=== PATIENT | female | born 1980 | race Caucasian/White ===

== ENCOUNTER 2019-10-26 14:26 | Emergency (ER) | payer BC, SELFPAY ==
--- NOTE | 2019-10-26 14:39 | XRR_ITS ---
PROCEDURE INFORMATION: Exam: XR Chest, 1 View Exam date and time: 10/26/2019 4:55 PM Age: 39 years old Clinical indication: Chest pain TECHNIQUE: Imaging protocol: XR of the chest Views: 1 view. COMPARISON: CR Chest 1 [place] [id number] 01/31/2017 10:19 AM FINDINGS: Lungs: Unremarkable. No consolidation. Pleural space: Unremarkable. No pleural effusion. No pneumothorax. Heart/Mediastinum: Unremarkable. No cardiomegaly. Bones/joints: Unremarkable. XR/XR chest 1V portable [id number] IMPRESSION: No acute findings.
[2019-10-26 14:46] VITALS: BP 160/103; PULSE 77; RESP 20; TEMP 36.6; O2SAT 98; BMI 57.4
[2019-10-26 16:20] LABS: Basophils % 0.5 %; Eosinophils # 0.3 10^3/uL (0.0-0.8); Eosinophils % 3.2 %; Hematocrit 35.6 % (37.0-47.0); Hemoglobin 10.8 g/dL (11.5-15.3); Lymphocytes # 2.1 10^3/uL (0.8-4.8); Lymphocytes % 27.1 %; Mean Corpuscular HGB Conc 30.3 g/dL (30.0-36.0); Mean Corpuscular Hemoglobin 23.3 pg (28.0-34.0); Mean Corpuscular Volume 76.9 fL (81-99); Mean Platelet Volume 9.8 fL (7.4-10.4); Monocytes # 0.4 10^3/uL (0.2-0.9); Monocytes % 5.5 %; Neutrophils # 4.9 10^3/uL (1.8-7.7); Neutrophils % 63.3 %; Nucleated Red Blood Cells % 0 %; Platelet Count 305 10^3/cmm (130-400); Red Blood Count 4.63 10^6/uL (4.1-5.3); White Blood Count 7.8 10^3/uL (4.0-10.0)
[2019-10-26 16:37] LABS: Troponin(5th) Baseline 7 ng/mL (0-10)
--- NOTE | 2019-10-26 16:39 | ECG_ITS ---
Measurements Intervals [place] Rate: 67 P: 36 TN: 157 QRS: 7 QRSD: 95 T: 10 QT: 402 QTc: 426 SINUS RHYTHM MODERATE VOLTAGE CRITERIA FOR LVH, CONSIDER NORMAL VARIANT [MEETS CRITERIA IN ONE OF: R(aVL), S(V1), R(V5), R(V5/V6)+S(V1)] Compared to ECG 01/31/2017 13:42:45 No significant changes Electronically Signed On 10-26-2019 18:24:01 CDT by Gloria Narvaez M.D. [id number]
--- NOTE | 2019-10-26 16:54 | ED_ITS ---
HPI - General Adult General: Chief complaint: General Medical Stated complaint: SOB; NEAR SYNCOPE; BILATERAL ARM BURNING Time Seen by Provider: 10/26/19 16:13 History of Present Illness: HPI narrative: Patient is a 39-year-old female who presents today with complaints of chest pain, brief possible syncope, arm and leg burning and shortness of breath. She reports that this started while she was sitting in her car eating lunch that she got at [employer]. She says that she felt some pressure and heaviness in her chest and felt like it was hard to breathe. She felt her head fall back and thinks that she lost consciousness briefly. She felt hot and turned up the air conditioning in her car. She finished eating and went back to work. At work she noted that when she was up moving around she got a burning pain in her arms and legs similar to what you might get from exercising too hard. She said at her desk and the burning in her legs went away but as long as she continued to use her arms the burning continued. She also had some blurriness and lightheadedness. She called her and he called their doctor, Dr. Ram who recommended that she come to the ER. She notes that 1 time in the past she was seen here and diagnosed with a panic attack. She said this feels different. That time she had a very severe chest pain. Symptoms today have been going on for several hours without relief. She does notice that she feels better when she is resting and worse when she is moving around. She has noticed excessive thirst and has been craving ice recently. No other unusual symptoms. Onset (ago): hour(s) (4) Location: chest, upper extremity and lower extremity Radiation: non-radiation Severity: severe Quality: burning Associated symptoms: Deny chest pain, dyspnea, headache(s), malaise, nausea, rash or vomiting Review of Systems General: Reports: 10 or more systems reviewed and unremarkable except in HPI and below Const: Denies: fever(s), chills, fatigue or malaise Eyes: Denies: change in vision ENMT: Denies: odynophagia Card: Denies: chest pain or swelling of feet/ankles Resp: Denies: dyspnea, productive cough or non-productive cough GI: Denies: abdominal pain, nausea or vomiting : Denies: flank pain or difficulty voiding Musc: Denies: neck pain or back pain Skin/Breast: Denies: rash Neuro: Denies: headache(s), numbness in extremities or weakness in extremities Endo: Reports: polydipsia and other (Craving ice) Filipe/Lymph: Denies: easy bruising or easy bleeding PFSH ED PFSH: Social History Smoking and tobacco status: never smoked Female Reproductive History: Date of last menstrual period: 10/02/19 Physical Exam Const: COMMON NORMALS: no acute distress, patient oriented x3, no limitations and alert GENERAL APPEARANCE: cooperative and comfortable NUTRITIONAL APPEARANCE: obese HENMT: HEAD & SCALP: normal to inspection FACE & SINUS: normal facial exam Eye: GENERAL EYE: appearance normal, both eyes and all related structures Neck/C-Spine: COMMON NORMALS: supple, no meningeal signs and no JVD Chest: COMMONS NORMALS: normal inspection of the chest Resp: COMMON NORMALS: normal respiratory effort, No use of accessory muscles and clear to auscultation bilaterally AUSCULTATION: clear to auscultation bilaterally Cardio: COMMON NORMALS: no JVD, regular rate, regular rhythm and No murmurs present (Cardio) RATE: regular rate RHYTHM: regular rhythm GI: COMMON NORMALS: Normal to inspection, nondistended, normoactive bowel sounds present, Soft to palpation and non-tender INSPECTION: Yes normal to inspection AUSCULTATION: Yes normoactive bowel sounds PALPATION: Yes Soft to palpation Back/Pelvis: COMMON NORMALS: thoracic and lumbar spine normal to inspection Extremity: COMMON NORMALS: normal to inspection Neuro: COMMON NORMALS: patient oriented x3, moves all extremities, no focal motor deficits and no sensory deficits noted SENSORIUM/ORIENTATION: Yes alert MENINGEAL SIGNS: Yes no meningeal signs Psych: COMMON NORMALS: mental status grossly normal, cooperative and normal affect Skin: COMMON NORMALS: no rashes or lesions noted and turgor normal GENERAL SKIN EXAM: no rashes or lesions noted and turgor normal Course ED course: Patient continued to be somewhat anxious while in the department. She said she could feel her heart pounding. Work-up was completely negative including CRP, troponins, EKGs, d-dimer. I think this may have been anxiety and we discussed that at some length. However we also discussed that the ED work-up is not enough to rule out all potential causes and she needs to follow-up with her primary care doctor. Vital Signs: Vital signs: Vital Signs Temperature 97.9 F 10/26/19 14:46 Pulse Rate 68 10/26/19 19:50 Respiratory Rate 17 10/26/19 19:50 Blood Pressure 163/77 10/26/19 19:50 Pulse Oximetry 100 10/26/19 19:50 [facility] - General Adult Lab Data: Labs: Lab Results 10/26/19 10/26/19 10/26/19 Range/Units 16:03 16:03 16:03 WBC 7.8 (4.0-10.0) 10^3/ uL RBC 4.63 (4.1-5.3) 10^6/u L Hgb 10.8 L (11.5-15.3) g/dL Hct 35.6 L (37.0-47.0) % MCV 76.9 L (81-99) fL MCH 23.3 L (28.0-34.0) pg MCHC 30.3 (30.0-36.0) g/dL RDW 17.0 H (12.1-15.1) % Plt Count 305 (130-400) 10^3/c mm MPV 9.8 (7.4-10.4) fL Neut % (Auto) 63.3 % Lymph % (Auto) 27.1 % Canadian % (Auto) 5.5 % Eos % (Auto) 3.2 % Baso % (Auto) 0.5 % Neut # (Auto) 4.9 (1.8-7.7) 10^3/u L Lymph # (Auto) 2.1 (0.8-4.8) 10^3/u L Canadian # (Auto) 0.4 (0.2-0.9) 10^3/u L Eos # (Auto) 0.3 (0.0-0.8) 10^3/u L Baso # (Auto) 0.0 (0.0-0.1) 10^3/u L Nucleated RBC % (a uto) 0 % Nucleated RBCs # 0.0 /100WBC ESR (0-15) mm/hr D-Dimer (0-0.59) ug/mIFE U Sodium 137 (136-145) mmol/L Potassium 3.9 (3.5-5.1) mmol/L Chloride 101 (98-107) mmol/L Carbon Dioxide 22 (22-29) mmol/L Anion Gap 17.9 (5-19) BUN 14 (6-20) mg/dL Creatinine 0.7 (0.5-0.9) mg/dL GFR Calculation 92.7 (90-130) mL/min Glucose 106 (65-115) mg/dL Calculated Osmolal ity 281 L (285-295) mOsm/k g Lactate (0.5-2.2) mmol/L Calcium 8.8 (8.5-10.5) mg/dL Total Bilirubin 0.2 (0.15-1.2) mg/dL AST 12 (0-32) U/L ALT 16 (0-33) U/L Alkaline Phosphata se 63 (35-105) IU/L Troponin T Baselin e 7 (0-10) ng/mL C-Reactive Protein (0.0-4.9) mg/L Total Protein 6.8 (6.6-8.7) g/dL Albumin 3.9 (3.5-5.2) g/dL Globulin 2.9 (1.3-4.6) g/dL HCG, Qual (Negative) 10/26/19 10/26/19 10/26/19 Range/Units 16:03 16:03 16:03 WBC (4.0-10.0) 10^3/ uL RBC (4.1-5.3) 10^6/u L Hgb (11.5-15.3) g/dL Hct (37.0-47.0) % MCV (81-99) fL MCH (28.0-34.0) pg MCHC (30.0-36.0) g/dL RDW (12.1-15.1) % Plt Count (130-400) 10^3/c mm MPV (7.4-10.4) fL Neut % (Auto) % Lymph % (Auto) % Canadian % (Auto) % Eos % (Auto) % Baso % (Auto) % Neut # (Auto) (1.8-7.7) 10^3/u L Lymph # (Auto) (0.8-4.8) 10^3/u L Canadian # (Auto) (0.2-0.9) 10^3/u L Eos # (Auto) (0.0-0.8) 10^3/u L Baso # (Auto) (0.0-0.1) 10^3/u L Nucleated RBC % (a uto) % Nucleated RBCs # /100WBC ESR 25 H (0-15) mm/hr D-Dimer 0.44 (0-0.59) ug/mIFE U Sodium (136-145) mmol/L Potassium (3.5-5.1) mmol/L Chloride (98-107) mmol/L Carbon Dioxide (22-29) mmol/L Anion Gap (5-19) BUN (6-20) mg/dL Creatinine (0.5-0.9) mg/dL GFR Calculation (90-130) mL/min Glucose (65-115) mg/dL Calculated Osmolal ity (285-295) mOsm/k g Lactate (0.5-2.2) mmol/L Calcium (8.5-10.5) mg/dL Total Bilirubin (0.15-1.2) mg/dL AST (0-32) U/L ALT (0-33) U/L Alkaline Phosphata se (35-105) IU/L Troponin T Baselin e (0-10) ng/mL C-Reactive Protein 4.5 (0.0-4.9) mg/L Total Protein (6.6-8.7) g/dL Albumin (3.5-5.2) g/dL Globulin (1.3-4.6) g/dL HCG, Qual (Negative) 10/26/19 10/26/19 Range/Units 17:06 17:10 WBC (4.0-10.0) 10^3/ uL RBC (4.1-5.3) 10^6/u L Hgb (11.5-15.3) g/dL Hct (37.0-47.0) % MCV (81-99) fL MCH (28.0-34.0) pg MCHC (30.0-36.0) g/dL RDW (12.1-15.1) % Plt Count (130-400) 10^3/c mm MPV (7.4-10.4) fL Neut % (Auto) % Lymph % (Auto) % Canadian % (Auto) % Eos % (Auto) % Baso % (Auto) % Neut # (Auto) (1.8-7.7) 10^3/u L Lymph # (Auto) (0.8-4.8) 10^3/u L Canadian # (Auto) (0.2-0.9) 10^3/u L Eos # (Auto) (0.0-0.8) 10^3/u L Baso # (Auto) (0.0-0.1) 10^3/u L Nucleated RBC % (a uto) % Nucleated RBCs # /100WBC ESR (0-15) mm/hr D-Dimer (0-0.59) ug/mIFE U Sodium (136-145) mmol/L Potassium (3.5-5.1) mmol/L Chloride (98-107) mmol/L Carbon Dioxide (22-29) mmol/L Anion Gap (5-19) BUN (6-20) mg/dL Creatinine (0.5-0.9) mg/dL GFR Calculation (90-130) mL/min Glucose (65-115) mg/dL Calculated Osmolal ity (285-295) mOsm/k g Lactate 1.3 (0.5-2.2) mmol/L Calcium (8.5-10.5) mg/dL Total Bilirubin (0.15-1.2) mg/dL AST (0-32) U/L ALT (0-33) U/L Alkaline Phosphata se (35-105) IU/L Troponin T Baselin e (0-10) ng/mL C-Reactive Protein (0.0-4.9) mg/L Total Protein (6.6-8.7) g/dL Albumin (3.5-5.2) g/dL Globulin (1.3-4.6) g/dL HCG, Qual Negative (Negative) Discharge Plan Discharge Patient Disposition: Home, Self-Care Clinical Impression: Anxiety Chest pain Qualifiers: Chest pain type: other chest pain Qualified Code(s): R07.89 - Other chest pain Condition: Stable Referrals: Curt Ram DO [Family Provider] - Discharge Diet: Usual diet and Low Salt Discharge Activity: Resume usual activity Patient Instructions: Chest Pain (ED) Activity Restrictions/Additional Instructions: Rest this weekend. Call Dr. Ram on Tuesday to arrange for follow up. Return to the ED if you have any new or worse symptoms. Stand Alone Forms: Work/School Release Discharge Date/Time: 10/26/19 19:53 Coding Level of Care Code ED Glaciologist for Jose Carlos Fwd Exam Comprehensive
[2019-10-26 17:08] LABS: C Reactive Protein 4.5 mg/L (0.0-4.9)
[2019-10-26 17:11] LABS: D Dimer 0.44 ug/mIFEU (0-0.59)
[2019-10-26 17:18] LABS: HCG Qualitative Urine. Negative (Negative)
[2019-10-26 17:26] LABS: Lactate (Lactic Acid level) 1.3 mmol/L (0.5-2.2)
[2019-10-26 17:57] LABS: Erythrocyte Sedimentation Rate 25 mm/hr (0-15)
[2019-10-26 18:13] VITALS: BP 147/78; PULSE 65; RESP 20; O2SAT 99
--- NOTE | 2019-10-26 19:06 | PC.NURSE ---
Report received from JUANA Stevens and care transferred to JUANA Gayle
[2019-10-26 19:30] VITALS: BP 153/67; PULSE 65; RESP 16; O2SAT 99
[2019-10-26 19:31] LABS: Alanine Aminotransferase 16 U/L (0-33); Albumin Level 3.9 g/dL (3.5-5.2); Alkaline Phosphatase 63 IU/L (35-105); Anion Gap 17.9 (5-19); Aspartate Amino Transferase 12 U/L (0-32); Blood Urea Nitrogen 14 mg/dL (6-20); Calcium 8.8 mg/dL (8.5-10.5); Carbon Dioxide 22 mmol/L (22-29); Chloride 101 mmol/L (98-107); Globulin 2.9 g/dL (1.3-4.6); Glomerular Filtration Rate 92.7 mL/min (90-130); Glucose 106 mg/dL (65-115); Osmolality Calculated 281 mOsm/kg (285-295); Potassium 3.9 mmol/L (3.5-5.1); Sodium 137 mmol/L (136-145); Total Bilirubin 0.2 mg/dL (0.15-1.2); Total Protein 6.8 g/dL (6.6-8.7)
[2019-10-26 19:50] VITALS: BP 163/77; PULSE 68; RESP 17; O2SAT 100
--- NOTE | 2019-10-26 20:39 | ECG_ITS ---
Measurements Intervals [place] Rate: 69 P: 32 ND: 162 QRS: 8 QRSD: 91 T: 18 QT: 390 QTc: 420 SINUS RHYTHM MODERATE VOLTAGE CRITERIA FOR LVH, CONSIDER NORMAL VARIANT [MEETS CRITERIA IN ONE OF: R(aVL), S(V1), R(V5), R(V5/V6)+S(V1)] Compared to ECG 01/31/2017 13:42:45 No significant changes Electronically Signed On 10-26-2019 18:26:11 CDT by Gloria Narvaez M.D. [id number]
== END 2019-10-26 19:53 | disposition home or self-care (01) ==
PROVIDERS: Physician Assistant; Emergency Provider Emergency Medicine; Family Provider Electrodiagnostic Medicine
DX: F41.9 Anxiety disorder, unspecified (principal); R07.89 Other chest pain
CPT/HCPCS: 12345; 36415; 71045; 80053; 81025; 83605; 84484; 85025; 85378; 85651; 86140; 93005; 99282; 99283

== ENCOUNTER → 2020-03-10 15:36 | Outpatient (BNVA) | payer BC, SELFPAY | PROVIDERS: Family Provider Electrodiagnostic Medicine; Visit Provider Nurse Practitioner Family | DX: Z11.59 Encounter for screening for other viral diseases (principal) | CPT/HCPCS: 87635 ==

== ENCOUNTER 2020-03-26 16:34 | Emergency (ER) | payer BC, SELFPAY ==
[2020-03-26 16:56] VITALS: BP 156/84; PULSE 97; RESP 18; TEMP 37.6; O2SAT 97; BMI 59.0
--- NOTE | 2020-03-26 18:36 | W.ED.FEVER ---
HPI - Fever General: Chief Complaint: Fever Stated Complaint: headache,body aches,confusion,dizziness Time Seen by Provider: 03/26/20 18:29 History of Present Illness: HPI Narrative: fever, chills , sore throat x few day, migraine for a number of days MD elicited complaint: fever Onset (ago): day(s) Relieving factors: acetaminophen Associated symptoms: Reports chills, confusion and sore throat; Deny abdominal pain, chest pain, extremity pain, nasal congestion, nausea or vomiting Review of Systems Const: Reports: fever(s), chills and body aches Eyes: Denies: change in vision or blurry vision ENMT: Denies: throat pain or nasal congestion Card: Denies: chest pain or dyspnea on exertion Resp: Denies: dyspnea, productive cough or non-productive cough GI: Denies: abdominal pain, nausea or vomiting : Reports: urinary frequency and urinary urgency Musc: Reports: other (myalgia); Denies: extremity pain Skin/Breast: Denies: rash Neuro: Reports: confusion and other (photo/phono phobia) Psych: Denies: anxiety or depression Filipe/Lymph: Denies: easy bruising PFSH ED PFSH: Social History (Updated 03/10/20 @ 14:12 by Ana Guillermo NP) Smoking and tobacco status: never smoked Alcohol intake: never Female Reproductive History: Date of last menstrual period: 10/02/19 Physical Exam Const: COMMON NORMALS: no acute distress, average body habitus and patient oriented x3 HENMT: COMMON NORMALS: normocephalic HEAD & SCALP: normal to inspection and normocephalic FACE & SINUS: normal facial exam Eye: COMMON NORMALS: conjunctivae normal GENERAL EYE: appearance normal, both eyes and all related structures CONJUNCTIVA: Yes conjunctivae normal Neck/C-Spine: COMMON NORMALS: no JVD Chest: COMMONS NORMALS: normal inspection of the chest Resp: COMMON NORMALS: normal respiratory effort and clear to auscultation bilaterally AUSCULTATION: clear to auscultation bilaterally Cardio: COMMON NORMALS: no JVD, regular rate and regular rhythm RATE: regular rate RHYTHM: regular rhythm GI: COMMON NORMALS: Normal to inspection, nondistended, normoactive bowel sounds present Extremity: COMMON NORMALS: normal to inspection and full ROM Neuro: COMMON NORMALS: patient oriented x3 Course Vital Signs: Vital signs: Vital Signs Temperature 99.6 F 03/26/20 16:56 Pulse Rate 97 03/26/20 16:56 Respiratory Rate 18 03/26/20 16:56 Blood Pressure 156/84 03/26/20 16:56 Pulse Oximetry 97 03/26/20 16:56 Discharge Plan Discharge Prescriptions: No Action quinapril 20 mg tablet 20 mg PO DAILY RF: 0 paroxetine mesylate 30 mg tablet 30 mg PO DAILY RF: 0 hydroxyzine HCl 25 mg tablet 25 mg PO QID PRNRF: 0 ferrous sulfate 325 mg (65 mg iron) tablet 325 mg PO DAILY RF: 0 famotidine 20 mg tablet 20 mg PO BID RF: 0 Coding Level of Care Code ED Linux Network Engineer for Jose Carlos Sweeney
--- NOTE | 2020-03-26 18:38 | XR_ITS ---
WS: [id number] Portable AP upright chest, 03/26/2020 Clinical Data: fever Comparison: Portable chest, 10/26/2019. Findings: No nodules, masses or effusions are seen. The heart is normal. The pulmonary vascularity is not increased. No pneumonia or pneumothorax is seen. XR/XR chest 1V portable [id number] Impression: Negative chest.
--- NOTE | 2020-03-26 19:33 | PC.NURSE ---
toradol 30mg zofran 4 mg and benadryl 25 mg a 1 kiter fluids given
[2020-03-26 19:59] LABS: Basophils % 0.3 %; Hematocrit 44.5 % (37.0-47.0); Hemoglobin 13.6 g/dL (11.5-15.3); Lymphocytes # 1.2 10^3/uL (0.8-4.8); Mean Corpuscular HGB Conc 30.6 g/dL (30.0-36.0); Mean Corpuscular Hemoglobin 25.1 pg (28.0-34.0); Mean Corpuscular Volume 82.3 fL (81-99); Mean Platelet Volume 10.8 fL (7.4-10.4); Monocytes # 0.2 10^3/uL (0.2-0.9); Monocytes % 6.3 %; Neutrophils % 54.1 %; Nucleated Red Blood Cells % 0 %; Platelet Count 155 10^3/cmm (130-400); Red Blood Count 5.41 10^6/uL (4.1-5.3); Red Cell Distribution Width 15.3 % (12.1-15.1); White Blood Count 3.2 10^3/uL (4.0-10.0)
[2020-03-26 20:04] LABS: Add Urine Microscopic? NO
[2020-03-26 20:12] LABS: Specific Gravity, Urine 1.025 (1.005-1.030); Urine Appearance Clear (CLEAR); Urine Color Yellow (Yellow)
[2020-03-26 20:13] LABS: Bilirubin Urine Neg (Negative); Blood Urine Neg (Negative); Glucose Urine UA Norm (Normal); Ketones Urine Negative (Negative); Leukocyte Esterase Urine Negative (Negative); Nitrate Urine Negative (Negative); Protein Urine Neg (Negative); Urobilinogen Urine Norm (Negative)
[2020-03-26 20:22] LABS: Rapid Strep A Test Negative (Negative)
[2020-03-26 20:26] LABS: Alanine Aminotransferase 52 U/L (0-33); Albumin Level 4.1 g/dL (3.5-5.2); Alkaline Phosphatase 70 IU/L (35-105); Aspartate Amino Transferase 37 U/L (0-32); Blood Urea Nitrogen 13 mg/dL (6-20); Calcium 9.2 mg/dL (8.5-10.5); Carbon Dioxide 26 mmol/L (22-29); Chloride 98 mmol/L (98-107); Globulin 3.3 g/dL (1.3-4.6); Glomerular Filtration Rate 69.3 mL/min (90-130); Glucose 104 mg/dL (65-115); Osmolality Calculated 280 mOsm/kg (285-295); Sodium 135 mmol/L (136-145); Total Bilirubin 0.2 mg/dL (0.15-1.2); Total Protein 7.4 g/dL (6.6-8.7)
[2020-03-26 20:29] LABS: Anion Gap 14.8 (5-19); Potassium 3.8 mmol/L (3.5-5.1)
[2020-03-26 21:36] VITALS: BP 150/90; O2SAT 99
== END 2020-03-26 21:37 | disposition home or self-care (01) ==
PROVIDERS: Emergency Provider Nurse Practitioner Family
DX: R50.9 Fever, unspecified (principal); R41.0 Disorientation, unspecified; J02.9 Acute pharyngitis, unspecified
CPT/HCPCS: 12345; 71045; 80053; 81003; 85025; 87081; 87400; 87880; 96361; 96374; 96375; 96376; 99283

== ENCOUNTER → 2020-03-27 15:38 | Outpatient (BNVA) | payer BC, SELFPAY | PROVIDERS: Visit Provider Nurse Practitioner Family | DX: Z11.59 Encounter for screening for other viral diseases (principal); Z20.828 Contact with and (suspected) exposure to other viral communicable diseases; B34.9 Viral infection, unspecified | CPT/HCPCS: 87635 ==

== ENCOUNTER → 2021-05-11 11:20 | Outpatient (BNVA) | payer BC, SELFPAY | PROVIDERS: Visit Provider Nurse Practitioner Family | DX: Z20.822 Contact with and (suspected) exposure to COVID-19 (principal) | CPT/HCPCS: 87635 ==

== ENCOUNTER 2021-10-21 11:55 | Emergency (ER) | payer BC, SELFPAY ==
[2021-10-21 12:02] VITALS: BP 203/116; PULSE 100; RESP 19; TEMP 36.8; O2SAT 97; BMI 62.6
--- NOTE | 2021-10-21 12:10 | US_ITS ---
WS: [id number] ULTRASOUND PELVIS TECHNIQUE: Transvaginal. CLINICAL INFORMATION: menometrorrhagia COMPARISON: None. FINDINGS: Technically difficult study due to body habitus Uterus Orientation: Anteverted. Size: 12.0 x 7.2 x 6.3 cm Masses: None. Cervix: Large nabothian cysts in the cervix largest measuring 2.7 x 2.1 x 2.5 cm Endometrium: Thickened measuring 18 mm Adnexa: Neither ovary is visualized. No adnexal masses. Free fluid: None. Other findings: None. US/US transvaginal [id number] IMPRESSION: Technically difficult study due to body habitus. 1. Large nabothian cysts in the cervix largest measuring 2.7 x 2.1 x 2.5 CM. 2. Enlarged uterus with thickened endometrium measuring 18 mm. This could be f urther evaluated with hysteroscopy in the setting of menorrhagia. 3. Neither ovary is visualized. No adnexal masses. 4. No free fluid in the cul-de-sac.
--- NOTE | 2021-10-21 12:21 | W.ED.FEMALGU ---
HPI - Female Genitourinary General: Chief complaint: Vaginal Bleeding Stated complaint: severe vaginal bleeding Time Seen by Provider: 10/21/21 11:59 History of Present Illness: 41-year-old female presents to the emergency department with her mother chief complaint of excessive vaginal bleeding and menstrual cycle since June the patient reports that the earliest she gets to be seen by her ARCHITECTURAL ENGINEER is in November. The patient reports that she has had persistent bleeding since early June with a large amount of clots the patient reports no known history of underlying endometriosis or fibroid disease. She reports she does not believe she is reports she is currently getting worked up for lupus in which she is on chronic steroids. Patient does not report having any other associated symptoms besides generalized malaise and fatigue that brought her and she reports some mild lower abdominal cramping reporting no other associated symptoms reports she is just tired of feeling fatigued. Patient reports she has not attempted to contact her ARCHITECTURAL ENGINEER prior to arrival. Apparently the patient did have some blood work obtained outpatient in the last 2 weeks that came back somewhat unremarkable. Associated symptoms: Deny abdominal pain, headache(s) or nausea Date of Last Menstrual Period: 10/02/19 Review of Systems General: Reports: 10 or more systems reviewed and unremarkable except in HPI and below Const: Denies: fever(s), chills, fatigue or malaise Eyes: Denies: change in vision or blurry vision Card: Denies: chest pain or palpitations Resp: Denies: dyspnea or productive cough GI: Denies: abdominal pain, nausea or vomiting : Reports: irregular period Musc: Denies: extremity pain or extremity swelling Skin/Breast: Denies: rash or pruritus Neuro: Denies: headache(s) Psych: Denies: anxiety or depression Filipe/Lymph: Denies: easy bleeding All/Imm: Denies: urticaria, throat swelling or facial swelling PFSH ED PFSH: Social History Smoking and tobacco status: never smoked Alcohol intake: never Female Reproductive History: Date of last menstrual period: 10/02/19 Physical Exam Const: COMMON NORMALS: no acute distress (Patient has a flat affect on exam however appears in no obvious acute distr), patient oriented x3 and healthy appearing HENMT: COMMON NORMALS: normocephalic and atraumatic HEAD & SCALP: normocephalic and atraumatic Eye: COMMON NORMALS: Equal, round and reactive pupils present and EOMs intact bilaterally PUPIL: Yes Equal, round and reactive pupils present Neck/C-Spine: COMMON NORMALS: full ROM, supple and no JVD Lymph: LYMPHATIC: no lymphadenopathy noted Chest: COMMONS NORMALS: normal inspection of the chest and normal palpation of entire chest wall Resp: COMMON NORMALS: normal respiratory effort, No retractions and clear to auscultation bilaterally EFFORT & INSPECTION: Yes able to speak in complete sentences and Yes symmetric chest movement AUSCULTATION: clear to auscultation bilaterally Cardio: COMMON NORMALS: no JVD, regular rate and regular rhythm RATE: regular rate RHYTHM: regular rhythm GI: COMMON NORMALS: Normal to inspection, nondistended, normoactive bowel sounds present and Soft to palpation; negative for non-tender (Mild pain to palpation diffusely nonspecific in nature) INSPECTION: Yes normal to inspection PALPATION: Yes Soft to palpation : COMMON NORMALS: Yes no CVA tenderness BLADDER/KIDNEY EXAM: Yes no CVA tenderness Back/Pelvis: COMMON NORMALS: no CVA tenderness Extremity: COMMON NORMALS: normal to inspection and full ROM Neuro: COMMON NORMALS: patient oriented x3, CN's II-XII intact bilaterally, moves all extremities and no focal motor deficits Psych: COMMON NORMALS: mental status grossly normal, Normal thought process present, cooperative and normal affect THOUGHT PROCESS: Normal thought process present Skin: COMMON NORMALS: no rashes or lesions noted GENERAL SKIN EXAM: no rashes or lesions noted Course Vital Signs: Vital signs: Vital Signs Temperature 98.2 F 10/21/21 12:02 Pulse Rate 100 10/21/21 12:02 Respiratory Rate 19 H 10/21/21 12:02 Blood Pressure 203/116 10/21/21 12:02 Pulse Oximetry 97 10/21/21 12:02 MDM - Female Medical Decision Making Due to the patient's symptoms and condition lab work and imaging will be obtained ultrasonography will be obtained to further rule out possible fibroids contributing to her menometrorrhagia we will continue to follow currently patient has vital signs suggestive no acute anemia. We will continue to follow. Patient's ultrasound revealed thickened myometrium endometrium with a large nabothian cysts no blood noted in the posterior vault patient was found be mildly anemic however hemoglobin is in the high 10 range which she is not have any symptoms that he does acute blood loss patient was provided with Dr. Whitt further follow-up with referral for ARCHITECTURAL ENGINEER in the next 1 to 3 days which patient was advised to return the interim if any of her symptoms persist or worsen advised the patient she may need to be placed on some hormonal therapy to help augment her mental menorrhagia. Patient was advised to return the interim if any of her symptoms persist or worse. Lab Data : 10/21/21 12:30 10/21/21 12:30 Radiology Impressions Transvaginal US 10/21/21 12:10 IMPRESSION: Technically difficult study due to body habitus. 1. Large nabothian cysts in the cervix largest measuring 2.7 x 2.1 x 2.5 CM. 2. Enlarged uterus with thickened endometrium measuring 18 mm. This could be further evaluated with hysteroscopy in the setting of menorrhagia. 3. Neither ovary is visualized. No adnexal masses. 4. No free fluid in the cul-de-sac. Laboratory Results WBC 18.0 10^3/uL (4.0-10.0) H 10/21/21 12:30 RBC 4.24 10^6/uL (4.1-5.3) 10/21/21 12:30 Hgb 10.2 g/dL (11.5-15.3) L 10/21/21 12:30 Hct 32.9 % (37.0-47.0) L 10/21/21 12:30 MCV 77.6 fl (81-99) L 10/21/21 12:30 MCH 24.1 pg (28.0-34.0) L 10/21/21 12:30 MCHC 31.0 g/dL (30.0-36.0) 10/21/21 12:30 RDW 14.8 % (12.1-15.1) 10/21/21 12:30 Plt Count 447 10^3/cmm (130-400) H 10/21/21 12:30 MPV 9.1 fL (7.4-10.4) 10/21/21 12:30 Neut % (Auto) 73.2 % 10/21/21 12:30 Lymph % (Auto) 20.2 % 10/21/21 12:30 [place] % (Auto) 4.8 % 10/21/21 12:30 Eos % (Auto) 0.6 % 10/21/21 12:30 Baso % (Auto) 0.3 % 10/21/21 12:30 Neut # (Auto) 13.21 10^3/uL (1.8-7.7) H 10/21/21 12:30 Lymph # (Auto) 3.6 10^3/uL (0.8-4.8) 10/21/21 12:30 [place] # (Auto) 0.9 10^3/uL (0.2-0.9) 10/21/21 12:30 Eos # (Auto) 0.1 10^3/uL (0.0-0.8) 10/21/21 12:30 Baso # (Auto) 0.1 10^3/uL (0.0-0.1) 10/21/21 12:30 Nucleated RBC % (auto) 0 % 10/21/21 12:30 Nucleated RBCs # 0.0 /100WBC 10/21/21 12:30 PT 13.40 SECONDS (12.1-14.9) 10/21/21 12:30 INR 0.99 (0.8-1.2) 10/21/21 12:30 APTT 24.1 SECONDS (23.9-36.7) 10/21/21 12:30 Sodium 136 mmol/L (136-145) 10/21/21 12:30 Potassium 3.9 mmol/L (3.5-5.1) 10/21/21 12:30 Chloride 99 mmol/L (98-107) 10/21/21 12:30 Carbon Dioxide 22 mmol/L (22-29) 10/21/21 12:30 Anion Gap 18.9 (5-19) 10/21/21 12:30 BUN 18 mg/dL (6-20) 10/21/21 12:30 Creatinine 0.7 mg/dL (0.5-0.9) 10/21/21 12:30 GFR Calculation 91.8 mL/min (90-130) 10/21/21 12:30 Glucose 145 mg/dL (65-115) H 10/21/21 12:30 Calculated Osmolality 286 mOsm/kg (285-295) 10/21/21 12:30 Calcium 9.1 mg/dL (8.5-10.5) 10/21/21 12:30 Total Bilirubin 0.2 mg/dL (0.15-1.2) 10/21/21 12:30 AST 11 U/L (0-32) 10/21/21 12:30 ALT 14 U/L (0-33) 10/21/21 12:30 Alkaline Phosphatase 75 IU/L (35-105) 10/21/21 12:30 Total Protein 7.5 g/dL (6.6-8.7) 10/21/21 12:30 Albumin 4.1 g/dL (3.5-5.2) 10/21/21 12:30 Globulin 3.4 g/dL (1.3-4.6) 10/21/21 12:30 HCG, Qual Negative (Negative) 10/21/21 14:01 Urine Color Red (Yellow) 10/21/21 12:45 Urine Appearance Hazy (CLEAR) A 10/21/21 12:45 Urine pH 5 (5-7) 10/21/21 12:45 Ur Specific [place] 1.020 (1.005-1.030) 10/21/21 12:45 Urine Protein 1+ (Negative) H 10/21/21 12:45 Urine Glucose (UA) Norm (Normal) 10/21/21 12:45 Urine Ketones Negative (Negative) 10/21/21 12:45 Urine Blood 3+ (Negative) H 10/21/21 12:45 Urine Nitrate Negative (Negative) 10/21/21 12:45 Urine Bilirubin Neg (Negative) 10/21/21 12:45 Urine Urobilinogen Norm mg/dL (Negative) 10/21/21 12:45 Ur Leukocyte Esterase Trace (Negative) H 10/21/21 12:45 Urine RBC Too numerous to cnt /hpf (0-2) H 10/21/21 12:45 Urine WBC 5-10 /hpf (0-5) H 10/21/21 12:45 Ur Squamous Epith Cells None /hpf (0-5) 10/21/21 12:45 Amorphous Sediment Not Reportable 10/21/21 12:45 Urine Bacteria 1+ /hpf (NONE) H 10/21/21 12:45 Urine Opiates Screen Negative ng/mL (Negative) 10/21/21 12:45 Ur Barbiturates Screen Negative ng/mL (Negative) 10/21/21 12:45 Ur Phencyclidine Scrn Negative ng/mL (Negative) 10/21/21 12:45 Ur Amphetamines Screen Negative ng/mL (Negative) 10/21/21 12:45 U Benzodiazepines Scrn Negative ng/mL (Negative) 10/21/21 12:45 Urine Cocaine Screen Negative ng/mL (Negative) 10/21/21 12:45 U Marijuana (THC) Screen Negative ng/mL (Negative) 10/21/21 12:45 Discharge Plan Discharge Patient Disposition: Home Clinical Impression: Menometrorrhagia, Vaginal bleeding, Dysfunctional uterine bleeding Condition: Stable Prescriptions: No Action quinapril 20 mg tablet 20 mg PO DAILY 0RF paroxetine mesylate 30 mg tablet 30 mg PO DAILY 0RF hydroxyzine HCl 25 mg tablet 25 mg PO QID PRN0RF ferrous sulfate 325 mg (65 mg iron) tablet 325 mg PO DAILY 0RF famotidine 20 mg tablet 20 mg PO BID 0RF hydrocodone-acetaminophen 5-325 mg tablet 1 tab PO TID PRN (Reason: pain) Qty: 10 0RF Discharge Orders: Discharge ED (Routine); Ordered 10/21/21 Ordered By: Abdiaziz Tipton Referrals: Delicia Whitt MD [Physician] - 1-3 days (For further assessment and management of your heavy bleeding.) Discharge Diet: Advance as tolerated Discharge Activity: Resume usual activity Patient Instructions: Abnormal (Dysfunctional) Uterine Bleeding (ED), Menorrhagia (ED), Opioid Safety Activity Restrictions/Additional Instructions: Please follow-up with your doctor primary care doctor or the account management assistant in 2 to 3 days, continue taking your prescribed Feosol as prescribed and please return the interim if any of your symptoms persist or worse. Coding Level of Care Code ED Community Services Coordinator for Chg Fwd Exam Comprehensive
[2021-10-21] MEDS: sodium chloride 0.9% 1,000 ML 999 ML IV (12:37)
[2021-10-21] MEDS: ondansetron 2 mg/ML SDV 2 mL 4 MG IVP (12:37)
[2021-10-21] MEDS: ketorolac 30 mg/mL INJ IVP (12:38)
[2021-10-21 12:50] LABS: Basophils # 0.1 10^3/uL (0.0-0.1); Basophils % 0.3 %; Eosinophils # 0.1 10^3/uL (0.0-0.8); Eosinophils % 0.6 %; Hematocrit 32.9 % (37.0-47.0); Hemoglobin 10.2 g/dL (11.5-15.3); Lymphocytes # 3.6 10^3/uL (0.8-4.8); Lymphocytes % 20.2 %; Mean Corpuscular Hemoglobin 24.1 pg (28.0-34.0); Mean Corpuscular Volume 77.6 fl (81-99); Mean Platelet Volume 9.1 fL (7.4-10.4); Monocytes # 0.9 10^3/uL (0.2-0.9); Monocytes % 4.8 %; Neutrophils # 13.21 10^3/uL (1.8-7.7); Neutrophils % 73.2 %; Nucleated Red Blood Cells % 0 %; Platelet Count 447 10^3/cmm (130-400); Red Blood Count 4.24 10^6/uL (4.1-5.3); Red Cell Distribution Width 14.8 % (12.1-15.1)
[2021-10-21 13:10] LABS: Alanine Aminotransferase 14 U/L (0-33); Albumin Level 4.1 g/dL (3.5-5.2); Alkaline Phosphatase 75 IU/L (35-105); Anion Gap 18.9 (5-19); Aspartate Amino Transferase 11 U/L (0-32); Blood Urea Nitrogen 18 mg/dL (6-20); Calcium 9.1 mg/dL (8.5-10.5); Carbon Dioxide 22 mmol/L (22-29); Chloride 99 mmol/L (98-107); Globulin 3.4 g/dL (1.3-4.6); Glomerular Filtration Rate 91.8 mL/min (90-130); Glucose 145 mg/dL (65-115); Osmolality Calculated 286 mOsm/kg (285-295); Potassium 3.9 mmol/L (3.5-5.1); Sodium 136 mmol/L (136-145); Total Bilirubin 0.2 mg/dL (0.15-1.2); Total Protein 7.5 g/dL (6.6-8.7)
[2021-10-21 13:48] LABS: INR 0.99 (0.8-1.2)
[2021-10-21 13:51] LABS: Partial Thromboplastin Time 24.1 SECONDS (23.9-36.7)
[2021-10-21 14:23] LABS: Amphetamines Screen Urine Negative (Negative); Barbiturates Screen Urine Negative (Negative); Benzodiazepines Screen Urine Negative (Negative); Cocaine Screen Urine Negative (Negative); Opiate Screen Urine Negative (Negative); PCP Screen Urine Negative (Negative); THC Screen Urine Negative (Negative)
[2021-10-21 14:30] LABS: HCG Qualitative Urine. Negative (Negative)
[2021-10-21 14:34] LABS: Blood Urine 3+ (Negative); Glucose Urine UA Norm (Normal); Ketones Urine Negative (Negative); Nitrate Urine Negative (Negative); Protein Urine 1+ (Negative); Urine Appearance Hazy (CLEAR); Urine Color Red (Yellow); pH Urine 5 (5-7)
[2021-10-21 14:35] LABS: Add Urine Microscopic? YES; Bilirubin Urine Neg (Negative); Leukocyte Esterase Urine Trace (Negative); Urobilinogen Urine Norm (Negative)
[2021-10-21 14:36] LABS: Add Urine Culture? Yes; Bacteria Urine 1+ /hpf; RBC Urine TOO NUMEROUS TO CNT /hpf (0-2)
[2021-10-21 15:07] VITALS: PULSE 109; O2SAT 95
== END 2021-10-21 15:32 | disposition home or self-care (01) ==
PROVIDERS: Emergency Provider Emergency Medicine
DX: N92.1 Excessive and frequent menstruation with irregular cycle (principal); N93.8 Other specified abnormal uterine and vaginal bleeding
CPT/HCPCS: 76830; 80053; 80306; 81001; 81025; 85025; 85610; 85730; 87086; 96361; 96374; 96375; 99284; J1885; J2405; J7030

== ENCOUNTER → 2021-12-01 11:28 | Outpatient (BNVA) | payer BC, SELFPAY | PROVIDERS: Visit Provider Obstetrics & Gynecology | DX: N93.9 Abnormal uterine and vaginal bleeding, unspecified (principal); N92.1 Excessive and frequent menstruation with irregular cycle | CPT/HCPCS: 83001; 84146; 84443; 84702; 85025 ==

== ENCOUNTER → 2021-12-14 15:09 | Outpatient (BNVA) | payer BC, SELFPAY | PROVIDERS: Referring Provider Family Medicine; Visit Provider Internal Medicine | DX: N92.1 Excessive and frequent menstruation with irregular cycle (principal); R53.83 Other fatigue; M25.50 Pain in unspecified joint; R41.89 Other symptoms and signs involving cognitive functions and awareness; G47.30 Sleep apnea, unspecified; M79.7 Fibromyalgia; I10 Essential (primary) hypertension; E11.9 Type 2 diabetes mellitus without complications; E06.3 Autoimmune thyroiditis | CPT/HCPCS: 36415; 80053; 81001; 82306; 82550; 83516; 83735; 84100; 84425; 85025; 85651; 86140; 86160; 86162; 86200; 86235; 86255; 86376; 86431; 86617; 86704; 86803; 87340 ==

== ENCOUNTER 2022-02-22 11:10 | Outpatient (CLI) | payer BC, SELFPAY ==
--- NOTE | 2022-02-22 11:17 | XR_ITS ---
WS: [email or web address] Lumbar spine, 3 views, 02/22/2022. Clinical Data: M54.50 - Low back pain, unspecified Comparison: Lumbar spine, 11/27/2012. Findings: No compression fractures or subluxation is seen. There is degenerative disc narrowing at L5-L6 and L6 -S1. There are anterior osteophytes at L5-L6. The transverse processes and SI joints are normal. There are 6 lumbar vertebra. There are clips in the right upper quadrant from a cholecystectomy. XR/XR lumbar spine 2-3V* [id number] Impression: 1. Degenerative disc narrowing at L5-L6 and L6-S1. 2. Osteoarthritis at L5-L6.
--- NOTE | 2022-02-22 11:17 | XR_ITS ---
WS: [email or web address] Sacroiliac joints, 3 views, 02/22/2022. Clinical Data: L40.9 - Psoriasis, unspecified Comparison: None. Findings: The SI joints are normal in width. No erosion, sclerosis or destruction is seen. There are no fractur es or dislocations. The adjacent visualized pelvis and hips are unremarkable. XR/XR sacroiliac jts m 3V [id number] Impression: Negative SI joints.
--- NOTE | 2022-02-22 11:17 | XR_ITS ---
WS: [email or web address] Right hand, AP and lateral views, 02/22/2022 Clinical Data: M54.50 - Low back pain, unspecified Comparison: None. Findings: No fractures or dislocations are seen. The soft tissues are unremarkable. The joint space s are normal No periarticular demineralization or calcifications are seen. XR/XR hand RT 2V [id number] Impression: Negative right hand.
--- NOTE | 2022-02-22 11:17 | XR_ITS ---
WS: [email or web address] Left hand, AP and lateral views, 02/22/2022 Clinical Data: M54.50 - Low back pain, unspecified Comparison: None. Findings: No fractures or dislocations are seen. The soft tissues are unremarkable. The joint spaces are normal No periarticular demineralization or calcifications are seen. XR/XR hand LT 2V [id number] Impression: Negative left hand.
== END 2022-02-22 11:11 | disposition home or self-care (01) ==
LOC: RAD 11:12
PROVIDERS: PCP Family Medicine; Visit Provider Internal Medicine
DX: L40.9 Psoriasis, unspecified (principal); M54.50 Low back pain, unspecified
CPT/HCPCS: 72100; 72202; 73120

== ENCOUNTER 2022-03-15 10:52 | Outpatient (CLI) | payer BC, SELFPAY ==
[2022-03-15 12:41] LABS: Thyroid Stimulating Hormone 3.21 uIU/mL (0.27-4.20)
[2022-03-15 13:25] LABS: Free T4 Free Thyroxine 1.37 ng/dL (0.82-1.77)
[2022-03-16 10:39] LABS: T3 Total 97 ng/dL (76-181)
[2022-03-17 12:48] LABS: Thyroglobulin AB 17 IU/mL (< or = 1); Thyroid Peroxidase Antobodies 188 IU/mL (<9)
[2022-03-19 18:07] LABS: TSH Receptor Binding Antibody <1.00 IU/L (< OR = 2.00)
== END 2022-03-15 10:53 | disposition home or self-care (01) ==
PROVIDERS: PCP Family Medicine; Visit Provider Internal Medicine
DX: E03.8 Other specified hypothyroidism (principal); E06.3 Autoimmune thyroiditis; E22.1 Hyperprolactinemia
CPT/HCPCS: 36415; 83516; 84146; 84439; 84443; 84480; 86376; 86800

== ENCOUNTER → 2022-04-02 09:39 | Outpatient (BNVA) | payer BC, SELFPAY | PROVIDERS: PCP Family Medicine; Visit Provider Family Medicine | DX: E03.8 Other specified hypothyroidism (principal); E06.3 Autoimmune thyroiditis; E66.9 Obesity, unspecified; R00.0 Tachycardia, unspecified; R40.0 Somnolence; R60.9 Edema, unspecified | CPT/HCPCS: 80053; 85025 ==

== ENCOUNTER → 2022-04-05 12:02 | Outpatient (BNVA) | payer BC, SELFPAY | PROVIDERS: PCP Family Medicine; Visit Provider Internal Medicine | DX: E22.1 Hyperprolactinemia (principal); E03.9 Hypothyroidism, unspecified; E06.3 Autoimmune thyroiditis; Z79.899 Other long term (current) drug therapy | CPT/HCPCS: 71046; 86480 ==

== ENCOUNTER → 2022-05-06 14:05 | Outpatient (BNVA) | payer BC, SELFPAY | PROVIDERS: PCP Family Medicine; Visit Provider Family Medicine | DX: R74.01 Elevation of levels of liver transaminase levels (principal); D50.9 Iron deficiency anemia, unspecified; E03.8 Other specified hypothyroidism; E06.3 Autoimmune thyroiditis; R76.8 Other specified abnormal immunological findings in serum; R41.89 Other symptoms and signs involving cognitive functions and awareness; R53.83 Other fatigue | CPT/HCPCS: 80053; 83036; 85025; 85651; 86140 ==

== ENCOUNTER 2022-05-20 11:59 | Outpatient (CLI) | payer BC, SELFPAY ==
--- NOTE | 2022-05-20 12:15 | USCV_ITS ---
Butch Sorenson Age: 41 Gender: F : 1980 Exam Date: 05/20/2022 12:16 Ordering Phys: Kashif Whiting MD Technologist: Burke Murillo Exam Location: [facility] [place] [facility] [place] Indication: hypothyroidism, sob BP: 152 / 86 HR: 95 Rhythm: Sinus Technical Quality: Adequate MEASUREMENTS (Male / Female) Normal Values 2D ECHO LV Diastolic Diameter PLAX 5.9 cm 4.2 - 5.9 / 3.9 - 5.3 cm LV Systolic Diameter PLAX 4.1 cm IVS Diastolic Thickness 0.8 cm 0.6 - 1.0 / 0.6 - 0.9 cm IVS Systolic Thickness 1.2 cm LVPW Diastolic Thickness 1.1 cm 0.6 - 1.0 / 0.6 - 0.9 cm LVPW Systolic Thickness 1.6 cm LV Ejection Fraction 2D Teich 57.0 % LV Ejection Fraction MOD 2C 70.4 % LV Ejection Fraction 2C AL 71.6 % LA Diameter 3.6 cm LA Width 2.8 cm LA Height 4.9 cm RA Width 2.3 cm RA Height 3.9 cm IVC Diameter 2.0 cm M-MODE Aortic Annulus Diameter 2.8 cm LA Ao Ratio MM 1.3 MV E Point Septal Separation 0.5 cm DOPPLER AV Peak Velocity 154.3 cm/s LVOT Peak Velocity 111.0 cm/s MV Peak Velocity 99.0 cm/s MV Area PHT 5.5 cm squared Mitral E to A Ratio 1.0 MV E' Velocity 42.5 cm/s Mitral E to MV E' Ratio 11.1 Mitral E to LV E' Lateral Ratio 10.8 Mitral E to LV E' Septal Ratio 11.4 TR Peak Velocity 328.9 cm/s TR Peak Gradient 43.3 mmHg TR Mean Velocity 287.6 cm/s TR Mean Gradient 32.5 mmHg TR Velocity Time Integral 77.9 cm PV Peak Velocity 116.0 cm/s RV Acceleration Time 0.1 s RV Ejection Time 0.3 s RV AcT/ET 0.4 FINDINGS Left Ventricle Left ventricle is normal in size. LV systolic function is normal with EF of 55-60%. No regional wall motion abnormalities. Right Ventricle Normal in size and function Right Atrium Normal in size Left Atrium Normal in size Mitral Valve Structurally normal mitral valve. Mild mitral regurgitation. Aortic Valve Structurally normal aortic valve. No significant stenosis or regurgitation. Tricuspid Valve Mild tricuspid regurgitation.Insufficient TR jet to calculate RVSP Pulmonic Valve Not well visualized. Pericardium Normal Aorta Normal in size IVC Not well visualized CONCLUSIONS LV systolic function is normal with EF of 55-60% Mild mitral regurgitation Mild tricuspid regurgitation No comparison studies are available Romeo Canales MD (Electronically Signed) Final Date: 31 May 2022 17:57 S
== END 2022-05-20 12:00 | disposition home or self-care (01) ==
PROVIDERS: PCP Family Medicine; Visit Provider Internal Medicine
DX: E03.8 Other specified hypothyroidism (principal); E06.3 Autoimmune thyroiditis; R06.02 Shortness of breath; I08.1 Rheumatic disorders of both mitral and tricuspid valves
CPT/HCPCS: 93306

== ENCOUNTER 2022-05-20 12:51 | Outpatient (CLI) | payer BC, SELFPAY ==
[2022-05-20 13:57] LABS: Free T4 Free Thyroxine 1.17 ng/dL (0.82-1.77); Thyroid Stimulating Hormone 1.17 uIU/mL (0.27-4.20)
[2022-05-20 14:39] LABS: Prolactin 14.62 ng/mL (4.8-23.3)
== END 2022-05-20 12:52 | disposition home or self-care (01) ==
LOC: LAB 12:53
PROVIDERS: PCP Family Medicine; Visit Provider Internal Medicine
DX: E03.9 Hypothyroidism, unspecified (principal); E22.1 Hyperprolactinemia
CPT/HCPCS: 84146; 84439; 84443

== ENCOUNTER 2022-07-01 10:15 | Oncology outpatient (recurring) (ONCR) | payer BC, SELFPAY ==
[2022-06-16 09:24] LABS: Basophils # 0.1 10^3/uL (0.0-0.1); Basophils % 0.5 %; Eosinophils # 0.1 10^3/uL (0.0-0.8); Eosinophils % 1.1 %; Hematocrit 34.1 % (37.0-47.0); Hemoglobin 9.2 g/dL (11.5-15.3); Lymphocytes # 2.6 10^3/uL (0.8-4.8); Lymphocytes % 21.4 %; Mean Corpuscular Hemoglobin 18.1 pg (28.0-34.0); Monocytes # 0.6 10^3/uL (0.2-0.9); Monocytes % 4.9 %; Neutrophils # 8.65 10^3/uL (1.8-7.7); Neutrophils % 71.6 %; Nucleated Red Blood Cells # 0.1 /100WBC; Nucleated Red Blood Cells % 0.4 %; Platelet Count 378 10^3/cmm (130-400); Red Blood Count 5.09 10^6/uL (4.1-5.3); Red Cell Distribution Width 20.5 % (12.1-15.1); White Blood Count 12.1 10^3/uL (4.0-10.0)
[2022-06-16 09:38] LABS: LAB Peripheral Smear Sent for Review; Reticulocyte % 2.7 % (0.5-2.0)
[2022-06-16 09:52] LABS: Ferritin 5 ng/mL (15-150); Iron 21 ug/dL (37-145); Lactate Dehydrogenase 234 U/L (135-214); Percent Saturation 4.2 % (20-50); Total Iron Binding Capacity 490 mcg/dl; Unsaturated Iron Binding 469 ug/dL (112-347)
[2022-06-16 10:06] LABS: Vitamin B12 309 pg/mL (232-1245)
[2022-06-16 10:07] LABS: Folate Level 12.9 ng/mL (4.8-37.3)
[2022-07-01 10:34] LABS: Basophils # 0.1 10^3/uL (0.0-0.1); Basophils % 0.7 %; Eosinophils # 0.1 10^3/uL (0.0-0.8); Eosinophils % 1.5 %; Hematocrit 36.3 % (37.0-47.0); Hemoglobin 9.6 g/dL (11.5-15.3); Lymphocytes # 1.9 10^3/uL (0.8-4.8); Lymphocytes % 22.4 %; Mean Corpuscular HGB Conc 26.4 g/dL (30.0-36.0); Mean Corpuscular Hemoglobin 19.4 pg (28.0-34.0); Mean Corpuscular Volume 73.5 fl (81-99); Mean Platelet Volume 9.2 fL (7.4-10.4); Monocytes # 0.4 10^3/uL (0.2-0.9); Monocytes % 4.7 %; Neutrophils # 6.01 10^3/uL (1.8-7.7); Neutrophils % 69.9 %; Nucleated Red Blood Cells # 0.1 /100WBC; Nucleated Red Blood Cells % 0.7 %; Platelet Count 323 10^3/cmm (130-400); Red Blood Count 4.94 10^6/uL (4.1-5.3); Red Cell Distribution Width 27.1 % (12.1-15.1); White Blood Count 8.6 10^3/uL (4.0-10.0)
[2022-07-01 10:38] LABS: Reticulocyte % 3.3 % (0.5-2.0)
[2022-07-01 11:09] LABS: Prolactin 15.56 ng/mL (4.8-23.3)
[2022-07-01 11:10] LABS: Creatine Phosphokinase 69 U/L (26-192); Free T4 Free Thyroxine 1.23 ng/dL (0.82-1.77); Thyroid Stimulating Hormone 2.28 uIU/mL (0.27-4.20)
== END 2022-07-06 23:59 | disposition home or self-care (01) ==
PROVIDERS: Internal Medicine; PCP Family Medicine; Visit Provider Internal Medicine Medical Oncology
DX: D64.9 Anemia, unspecified (principal); E22.1 Hyperprolactinemia; E03.9 Hypothyroidism, unspecified; R76.8 Other specified abnormal immunological findings in serum
CPT/HCPCS: 36415; 82550; 82607; 82728; 82746; 83010; 83540; 83550; 83615; 84146; 84439; 84443; 85025; 85045

== ENCOUNTER → 2022-07-12 15:59 | Outpatient (BNVA) | payer BC, SELFPAY | PROVIDERS: PCP Family Medicine; Visit Provider Internal Medicine | DX: M25.50 Pain in unspecified joint (principal); N92.1 Excessive and frequent menstruation with irregular cycle; R41.89 Other symptoms and signs involving cognitive functions and awareness; R53.83 Other fatigue | CPT/HCPCS: 73120 ==

== ENCOUNTER 2022-07-30 09:30 | Oncology outpatient (recurring) (ONCR) | payer BC, SELFPAY ==
[2022-07-21 13:59] LABS: Basophils % 0.4 %; Eosinophils % 0.4 %; Hemoglobin 11.1 g/dL (11.5-15.3); Lymphocytes # 1.4 10^3/uL (0.8-4.8); Lymphocytes % 14.7 %; Mean Corpuscular HGB Conc 28.5 g/dL (30.0-36.0); Mean Corpuscular Hemoglobin 21.9 pg (28.0-34.0); Mean Corpuscular Volume 77.1 fl (81-99); Mean Platelet Volume 8.9 fL (7.4-10.4); Monocytes # 0.3 10^3/uL (0.2-0.9); Monocytes % 3.4 %; Neutrophils # 7.59 10^3/uL (1.8-7.7); Neutrophils % 80.8 %; Nucleated Red Blood Cells % 0 %; Platelet Count 336 10^3/cmm (130-400); Red Blood Count 5.06 10^6/uL (4.1-5.3); Red Cell Distribution Width 31.4 % (12.1-15.1); White Blood Count 9.4 10^3/uL (4.0-10.0)
[2022-07-21 14:10] LABS: Erythrocyte Sedimentation Rate 27 mm/hr (0-15)
[2022-07-21 14:18] LABS: Alanine Aminotransferase 19 U/L (0-33); Albumin Level 3.8 g/dL (3.5-5.2); Alkaline Phosphatase 57 U/L (35-105); Anion Gap 16.2 (5-19); Aspartate Amino Transferase 16 U/L (0-32); Blood Urea Nitrogen 11 mg/dL (6-20); C Reactive Protein 9.9 mg/L (0.0-4.9); Calcium 9.4 mg/dL (8.5-10.5); Carbon Dioxide 25 mmol/L (22-29); Chloride 100 mmol/L (98-107); Globulin 3.2 g/dL (1.3-4.6); Glomerular Filtration Rate 91.3 mL/min (90-130); Glucose 159 mg/dL (65-115); Osmolality Calculated 287 mOsm/kg (285-295); Potassium 4.2 mmol/L (3.5-5.1); Sodium 137 mmol/L (136-145); Total Bilirubin 0.2 mg/dL (0.15-1.2)
[2022-07-21 19:29] LABS: Iron 66 ug/dL (37-145); Percent Saturation 15.9 % (20-50); Total Iron Binding Capacity 414 mcg/dl; Unsaturated Iron Binding 348 ug/dL (112-347)
[2022-07-30] MEDS: sodium chloride 0.9% 250 ML 100 ML IV (10:28)
[2022-07-30] MEDS: ferric carboxy (IVPB) 750 MG in sodium chloride 0.9% (100 ml) 100 ML 345 MG IV (10:31)
[2022-07-30 13:08] VITALS: BP 144/92; PULSE 89; TEMP 35.7; O2SAT 99
== END 2022-08-03 23:59 | disposition home or self-care (01) ==
PROVIDERS: Internal Medicine; PCP Family Medicine; Visit Provider Internal Medicine Medical Oncology
DX: D50.9 Iron deficiency anemia, unspecified (principal); Z79.899 Other long term (current) drug therapy
CPT/HCPCS: 36415; 80053; 83540; 83550; 85025; 85651; 86140; 96365; J1439; J7050

== ENCOUNTER 2022-08-18 12:39 | Oncology outpatient (recurring) (ONCR) | payer OTHER, SELFPAY ==
[2022-08-18] MEDS: sodium chloride 0.9% 250 ML IV (13:07)
[2022-08-18] MEDS: ferric carboxy (IVPB) 750 MG in sodium chloride 0.9% (100 ml) 100 ML 345 MG IV (13:26)
[2022-08-18 14:04] VITALS: PULSE 98; RESP 16; TEMP 36.7; O2SAT 97
== END 2022-09-03 23:59 | disposition home or self-care (01) ==
PROVIDERS: PCP Family Medicine; Visit Provider Internal Medicine Medical Oncology
DX: D50.9 Iron deficiency anemia, unspecified (principal); Z79.899 Other long term (current) drug therapy
CPT/HCPCS: 96365; J1439; J7050

== ENCOUNTER 2022-09-20 11:38 | Oncology outpatient (recurring) (ONCR) | payer OTHER, SELFPAY ==
[2022-09-20 12:32] LABS: Basophils # 0.1 10^3/uL (0.0-0.1); Basophils % 0.6 %; Eosinophils # 0.1 10^3/uL (0.0-0.8); Eosinophils % 0.7 %; Hematocrit 47.4 % (37.0-47.0); Hemoglobin 15.1 g/dL (11.5-15.3); Lymphocytes # 1.7 10^3/uL (0.8-4.8); Lymphocytes % 18.3 %; Mean Corpuscular HGB Conc 31.9 g/dL (30.0-36.0); Mean Corpuscular Hemoglobin 28.8 pg (28.0-34.0); Mean Corpuscular Volume 90.3 fl (81-99); Mean Platelet Volume 9.3 fL (7.4-10.4); Monocytes # 0.5 10^3/uL (0.2-0.9); Monocytes % 5.3 %; Neutrophils # 6.81 10^3/uL (1.8-7.7); Neutrophils % 74.8 %; Nucleated Red Blood Cells % 0 %; Platelet Count 339 10^3/cmm (130-400); Red Blood Count 5.25 10^6/uL (4.1-5.3); Red Cell Distribution Width 19.7 % (12.1-15.1); White Blood Count 9.1 10^3/uL (4.0-10.0)
[2022-09-20 12:53] LABS: Ferritin 200 ng/mL (15-150); Iron 55 ug/dL (37-145); Percent Saturation 17.1 % (20-50); Total Iron Binding Capacity 320 mcg/dl; Unsaturated Iron Binding 265 ug/dL (112-347)
== END 2022-10-03 23:59 | disposition home or self-care (01) ==
PROVIDERS: PCP Family Medicine; Visit Provider Internal Medicine Medical Oncology
DX: D64.9 Anemia, unspecified (principal)
CPT/HCPCS: 36415; 82728; 83540; 83550; 85025

== ENCOUNTER → 2022-09-27 12:16 | Outpatient (BNVA) | payer OTHER, SELFPAY | PROVIDERS: PCP Family Medicine; Visit Provider Internal Medicine | DX: E22.1 Hyperprolactinemia (principal); E03.9 Hypothyroidism, unspecified | CPT/HCPCS: 36415; 84146; 84439; 84443; 84480 ==

== ENCOUNTER 2023-01-10 12:37 | Oncology outpatient (recurring) (ONCR) | payer OTHER, SELFPAY ==
[2023-01-10 12:39] VITALS: BP 161/93; PULSE 108; RESP 18; TEMP 36.8; O2SAT 96
[2023-01-10 12:49] LABS: Basophils % 0.4 %; Eosinophils # 0.2 10^3/uL (0.0-0.8); Eosinophils % 2.1 %; Hematocrit 41.7 % (37.0-47.0); Hemoglobin 13.8 g/dL (11.5-15.3); Lymphocytes # 1.4 10^3/uL (0.8-4.8); Mean Corpuscular HGB Conc 33.1 g/dL (30.0-36.0); Mean Corpuscular Hemoglobin 29.2 pg (28.0-34.0); Mean Corpuscular Volume 88.3 fl (81-99); Mean Platelet Volume 9.8 fL (7.4-10.4); Monocytes # 0.3 10^3/uL (0.2-0.9); Monocytes % 3.8 %; Neutrophils # 5.76 10^3/uL (1.8-7.7); Neutrophils % 75.6 %; Nucleated Red Blood Cells % 0 %; Platelet Count 304 10^3/cmm (130-400); Red Blood Count 4.72 10^6/uL (4.1-5.3); Red Cell Distribution Width 14.2 % (12.1-15.1); White Blood Count 7.6 10^3/uL (4.0-10.0)
[2023-01-10 13:20] LABS: Ferritin 174 ng/mL (15-150); Iron 78 ug/dL (37-145); Percent Saturation 25.2 % (20-50); Total Iron Binding Capacity 309 mcg/dl; Unsaturated Iron Binding 231 ug/dL (112-347)
== END 2023-02-03 23:59 | disposition home or self-care (01) ==
PROVIDERS: PCP Family Medicine; Visit Provider Internal Medicine Medical Oncology
DX: D50.9 Iron deficiency anemia, unspecified (principal); D64.9 Anemia, unspecified
CPT/HCPCS: 36415; 80053; 82728; 83540; 83550; 85025; 85651; 86140